=== PATIENT | male | born 1955 | race Caucasian/White ===

== ENCOUNTER 2021-12-06 19:17 | Emergency (ER) | payer MEDICARE, OTHER ==
[~2021-12-06] VITALS: Ht 170.2 cm; Wt 74.8 kg
[~2021-12-06 19:17] MED LIST: ASPI-605 PO; ROSU10TA2 PO
--- NOTE | 2021-12-06 19:35 | NUR ---
TO ER BED 2. [id number] C/O DOG BITE TO R FOREARM X 45 MIN AGO, MULTIPLE PUNCTURE DICKSON NOTED. PT CHANGED INTO GOWN. AWAITING MD FERRERA
--- NOTE | 2021-12-06 19:48 | NUR ---
REWRITE EDITOR AT BEDSIDE FOR WOUND CLEANING
[2021-12-06] MEDS ORDERED: TDAP [DIPH/PERTUSSIS/TET] 0.5 ML VIAL IM ONE ×2 (19:49→20:00)
[2021-12-06] MEDS ORDERED: IBUPROFEN 600 MG TABLET ONE (19:49)
--- NOTE | 2021-12-06 19:51 | NUR ---
XRAY AT BEDSIDE
[2021-12-06] MEDS ORDERED: IBUPROFEN 600 MG TABLET PO ONE (20:00)
[2021-12-06] MEDS ORDERED: AMOX-430 PO (20:30)
[2021-12-06 21:46] VITALS: BP 149/97
== END 2021-12-06 21:46 | disposition home or self-care (01) ==
LOC: ER 19:24
DX: S51.851A Open bite of right forearm, initial encounter (principal); E78.5 Hyperlipidemia, unspecified; I25.2 Old myocardial infarction; Z79.82 Long term (current) use of aspirin; Z79.899 Other long term (current) drug therapy; W54.0XXA Bitten by dog, initial encounter; Y93.89 Activity, other specified; Y92.89 Other specified places as the place of occurrence of the external cause; Y99.8 Other external cause status
CPT/HCPCS: 73090-TC; 90715